=== PATIENT | male | born 1955 | race Caucasian/White ===

== ENCOUNTER 2020-10-22 06:22 | Day surgery (SDC) | payer OTHER, SELFPAY ==
[2020-09-27 10:13] VITALS: BMI 30.4
--- NOTE | 2020-09-29 12:20 | P.CONAN_ITS ---
HPI - Anesthesia Eval Consult details Narrative: 65yo M for Colonoscopy [facility] Past Medical History Medical History (Updated 09/27/20 @ 10:10 by Amara Avila) History of anxiety HTN (hypertension) Surgical History Surgical History (Updated 09/27/20 @ 10:10 by Amara Avila) H/O colonoscopy Hx of left knee surgery Hx of shoulder surgery Social History Social History (Updated 09/27/20 @ 10:10 by Amara Avila) Household Members: Spouse Smoking Status: Unknown if ever smoked Meds Allergies Allergy/AdvReac Type Severity Reaction Status Date / Time No Known Allergies Allergy Unverified 09/25/20 20:41 Home Medications Medication Instructions Recorded Confirmed Last Taken Type amlodipine 1 tab PO DAILY 09/27/20 09/27/20 Unknown History bupropion HCl 300 mg PO DAILY 09/27/20 09/27/20 Unknown History fluoxetine 40 mg PO BID 09/27/20 09/27/20 Unknown History valsartan-hydrochlorothiazide 1 tab PO DAILY 09/27/20 09/27/20 Unknown History Exam Exam Date and Time: September 29, 2020 1220 Height,Weight and Vital Signs: Height 6 ft Weight 101.605 kg Assessment and Plan Assessment Anesthesia Assessment: Chart Reviewed
--- NOTE | 2020-10-20 12:14 | HO.ANESPROP2 ---
Documented by User: Kallie Hughes 10/20/20 12:15 HPI - Anesthesia Eval Consult details Narrative: 65yo M for Colonoscopy [facility] Past Medical History Medical History History of anxiety HTN (hypertension) Surgical History Surgical History H/O colonoscopy Hx of left knee surgery Hx of shoulder surgery Social History Social History Household Members: Spouse Patient Tobacco Use Status: Never used Tobacco Use of substances other than those prescribed or required for medical reasons: No Are you DNR?: No Advance Directives: No Advance Directives Information Provided: Yes Meds Allergies Allergy/AdvReac Type Severity Reaction Status Date / Time No Known Allergies Allergy Verified 10/22/20 06:39 Home Medications Medication Instructions Recorded Confirmed Last Taken Type amlodipine 1 tab PO DAILY 09/27/20 09/27/20 Unknown History bupropion HCl 300 mg PO DAILY 09/27/20 09/27/20 Unknown History fluoxetine 40 mg PO BID 09/27/20 09/27/20 Unknown History valsartan-hydrochlorothiazide 1 tab PO DAILY 09/27/20 09/27/20 Unknown History Exam Exam Date and Time: October 20, 2020 1214 Height,Weight and Vital Signs: Height 6 ft Weight 101.605 kg Assessment and Plan Assessment Anesthesia Assessment: Chart Reviewed Documented by User: Tanja Cornejo 10/22/20 07:33 [facility] Past Medical History Medical History History of anxiety HTN (hypertension) Surgical History Surgical History H/O colonoscopy Hx of left knee surgery Hx of shoulder surgery Social History Social History Household Members: Spouse Patient Tobacco Use Status: Never used Tobacco Use of substances other than those prescribed or required for medical reasons: No Are you DNR?: No Advance Directives: No Advance Directives Information Provided: Yes Meds Allergies Allergy/AdvReac Type Severity Reaction Status Date / Time No Known Allergies Allergy Verified 10/22/20 06:39 Home Medications Medication Instructions Recorded Confirmed Last Taken Type amlodipine 1 tab PO DAILY 09/27/20 09/27/20 Unknown History bupropion HCl 300 mg PO DAILY 09/27/20 09/27/20 Unknown History fluoxetine 40 mg PO BID 09/27/20 09/27/20 Unknown History valsartan-hydrochlorothiazide 1 tab PO DAILY 09/27/20 09/27/20 Unknown History Exam Airway Mallampati Class: II TM Dist: >3cm Neck ROM: Full Loose/Missing/Broken Teeth: No Heart: RRR Lungs: CTA Assessment and Plan Assessment Anesthesia Assessment: Anesthesia Plan Discussed and Chart Reviewed Final Anesthetic Review NPO: Yes ASA Class: II Final Preanesthetic Review: Meds/Allgs Chart Reviewed, Consent Obtained/Reviewed and Anes Risks/Benef Reviewed Patient Risk: Low Procedure Risk: Low Anesthetic Plan Anesthetic Plan: MAC: Disposition: Standard PACU
[2020-10-22 06:41] VITALS: BP 141/81; PULSE 65; RESP 18; TEMP 36.8; O2SAT 99
[2020-10-22] MEDS: Lactated Ringers 1,000 ML 100 ML IVCONT (06:52)
[2020-10-22 08:23] VITALS: BP 94/60; PULSE 58; RESP 16; TEMP 36.4; O2SAT 98
--- NOTE | 2020-10-22 08:25 | P.BOP_ITS ---
Brief Operative Note Date of Service: 10/22/20 Pre-op diagnosis: Screening Post-op diagnosis: other (Diverticulosis) Procedure: Colonoscopy to the cecum and TI Surgeon: Malik Obando Anesthesia: MAC Was an Tongue Lining Stitcher used for this Procedure?: No Estimated blood loss (mL): 0 Pathology: none sent Condition: stable Disposition: PACU
[2020-10-22 08:38] VITALS: BP 104/55; PULSE 59; RESP 16; TEMP 36.4; O2SAT 98
--- NOTE | 2020-10-22 10:00 | OP_ITS ---
SURGEON: Malik Obando MD INDICATIONS: The patient presents for evaluation of colorectal cancer screening. Full consent has been obtained from him for this, including risks of bleeding and perforation. PREOPERATIVE DIAGNOSIS: Colorectal cancer screening. POSTOPERATIVE DIAGNOSIS: PROCEDURE PERFORMED: Colonoscopy to cecum and terminal ileum. ESTIMATED BLOOD LOSS: COMPLICATIONS: ANESTHESIA: Monitored anesthesia care. ASSISTANTS: SPECIMENS: POSTOPERATIVE DIAGNOSES: Colorectal cancer screening, diverticulosis, and internal hemorrhoids. DESCRIPTION OF PROCEDURE: The patient was placed in the left lateral decubitus position. The digital rectal exam revealed no abnormalities. The Olympus video pediatric colonoscope was entered into the rectum and advanced easily to the cecum. Once in the cecum I did identify normal-appearing cecal pouch with appendiceal orifice and a normal-appearing ileocecal valve. The terminal ileum was cannulated and appeared normal. The scope withdrawn back in the colon. The entire cecum and ileocecal valve appeared normal. The scope was slowly withdrawn assessing all mucosal surfaces carefully. Preparation was excellent. I did not visualize any sign of polyps, colitis, or angiodysplasia. There was a moderate amount of sigmoid diverticulosis. In the rectum, scope was retroflexed visualizing small internal hemorrhoids, but no other pathology. The rectal mucosa appeared normal. The scope was straightened and withdrawn from the patient. He tolerated the procedure well and was returned to the recovery area in stable condition. IMPRESSION: 1. Diverticulosis. 2. Internal hemorrhoids. PLAN: Given this negative exam and negative family history, I would recommend a followup colonoscopy in 10 years for further screening. He will otherwise see me on a p.r.n. basis. Malik Obando MD RMNicolle/MODL / [id number]
== END 2020-10-22 09:05 | disposition home or self-care (01) ==
PROVIDERS: PCP Physician Assistant Medical; Visit Provider Internal Medicine
PROC: 0DJD8ZZ Inspection of Lower Intestinal Tract, Via Natural or Artificial Opening Endoscopic (ICD-10-PCS; CPT 45378; principal; 2020-10-22 07:30)
DX: Z12.11 Encounter for screening for malignant neoplasm of colon (principal); K57.30 Diverticulosis of large intestine without perforation or abscess without bleeding; K64.8 Other hemorrhoids; I10 Essential (primary) hypertension; F41.9 Anxiety disorder, unspecified; Z79.899 Other long term (current) drug therapy
CPT/HCPCS: 45378

== ENCOUNTER 2021-04-06 08:23 | Outpatient (REF) | payer OTHER, SELFPAY ==
--- NOTE | ~2021-04-06 | US_ITS ---
EXAMINATION: US ABDOMEN COMPLETE CLINICAL INFORMATION: Epigastric abdominal discomfort. COMPARISON: None TECHNIQUE: Real-time imaging of the abdominal viscera. FINDINGS: PANCREAS: Normal. ABDOMINAL AORTA: There is evidence of atherosclerotic disease. The midabdominal aorta is not well visualized due to bowel gas. The proximal and distal segments are normal in caliber. INFERIOR VENA CAVA: Not well visualized due to bowel gas LIVER: Not well visualized. The liver is normal in size. The liver contour is normal. Liver echotexture is normal. No focal hepatic lesion. There is no intrahepatic biliary duct dilatation seen. GALLBLADDER: Normal. The gallbladder is physiologically distended without evidence of stones, sludge, polyps, wall thickening or pericholecystic fluid. COMMON BILE DUCT: Normal in caliber measuring 0.6 cm in diameter. RIGHT KIDNEY: There is a 4 x 3.3 x 3.4 cm cyst in the midpole. No imaging follow-up is indicated. No hydronephrosis or renal calculi. The kidney measures 10.8 cm in maximum dimension. LEFT KIDNEY: Normal. No hydronephrosis. No renal calculi or focal parenchymal lesions. The kidney measures 11.5 cm in maximum dimension. SPLEEN: Normal. The spleen measures 9.9 cm in maximum dimension. FREE FLUID: None. US/US abdomen complete IMPRESSION: Limited exam due to body habitus. In particular, visualization of the aorta, IVC and liver is limited. Evidence of atherosclerotic disease. Right renal cyst.
== END 2021-04-06 08:24 | disposition home or self-care (01) ==
LOC: HO.US 08:23
PROVIDERS: PCP Physician Assistant Medical; Visit Provider Internal Medicine
DX: R10.13 Epigastric pain (principal)
CPT/HCPCS: 76700